=== PATIENT | female | born 1930 | race Caucasian/White ===

== ENCOUNTER 2017-01-08 06:10 | Emergency (ER) | payer MEDICARE, SELFPAY ==
[2017-01-08] MEDS ORDERED: Acyclovir 400 mg Tablet ONE (06:31)
[2017-01-08] MEDS ORDERED: HYDROcodone/Acetaminophen 10/325 mg Tablet ONE (06:35)
== END 2017-01-08 06:40 | disposition home or self-care (01) ==
LOC: NAV ERS 06:10
DX: B02.9 Zoster without complications (principal)
CPT/HCPCS: 99282